=== PATIENT | female | born 1945 | race Caucasian/White ===

== ENCOUNTER → 2020-01-22 07:24 | Outpatient (CLI) | payer MEDICARE, OTHER, SELFPAY ==
[2020-01-22 08:52] LABS: Blood Urea Nitrogen 20 mg/dL (7-17); Calcium 9.2 mg/dL (8.4-10.2); Carbon Dioxide 30 mmol/L (22-32); Chloride 104 mmol/L (98-107); Cholesterol 225 mg/dL (140-199); Estimated Glomerular Filt Rate > 60.0 mL/min (>60); Glucose 94 mg/dL (80-110); HDL Cholesterol 41 mg/dL (40-60); HEMOLYSIS < 15 (0-50); LDL Cholesterol Calculated 158 mg/dL (<100); Potassium 4.3 mmol/L (3.4-5.1); Sodium 138 mmol/L (137-145); Triglycerides 129 mg/dL (35-150)
[2020-01-22 09:24] LABS: TSH w/ Reflex to FT4 1.51 uIU/mL (0.47-4.68)
== END ==
PROVIDERS: PCP Internal Medicine; Referring Provider Internal Medicine; Visit Provider Internal Medicine
DX: Z13.1 Encounter for screening for diabetes mellitus (principal); E78.5 Hyperlipidemia, unspecified; E03.9 Hypothyroidism, unspecified
CPT/HCPCS: 36415; 80048; 80061; 84443

== ENCOUNTER → 2020-07-16 08:03 | Outpatient (CLI) | payer MEDICARE, OTHER, SELFPAY ==
[2020-07-16 08:43] LABS: Cholesterol 249 mg/dL (140-199); HDL Cholesterol 60 mg/dL (40-60); LDL Cholesterol Calculated 163 mg/dL (<100); Triglycerides 130 mg/dL (35-150)
== END ==
PROVIDERS: PCP Internal Medicine; Referring Provider Internal Medicine; Visit Provider Internal Medicine
DX: E78.5 Hyperlipidemia, unspecified (principal)
CPT/HCPCS: 36415; 80061

== ENCOUNTER → 2020-12-03 09:38 | Outpatient (CLI) | payer MEDICARE, OTHER, SELFPAY ==
[2020-12-03 10:42] LABS: Alanine Aminotransferase 19 IU/L (<35); Albumin 3.8 g/dL (3.5-5.0); Albumin Globulin Ratio 1.4 (1.0-2.8); Alkaline Phosphatase 65 U/L (38-126); Aspartate Aminotransferase 29 IU/L (14-36); Bilirubin Total 0.4 mg/dL (0.2-1.3); Blood Urea Nitrogen 19 mg/dL (7-17); Calcium 9.4 mg/dL (8.4-10.2); Carbon Dioxide 31 mmol/L (22-32); Chloride 105 mmol/L (98-107); Cholesterol 249 mg/dL (140-199); Estimated Glomerular Filt Rate > 60.0 mL/min (>60); Globulin 2.8 g/dL (1.7-4.1); Glucose 91 mg/dL (80-110); HDL Cholesterol 49 mg/dL (40-60); HEMOLYSIS < 15 (0-50); LDL Cholesterol Calculated 170 mg/dL (<100); Potassium 4.4 mmol/L (3.4-5.1); Sodium 139 mmol/L (137-145); Total Protein 6.6 g/dL (6.3-8.2); Triglycerides 151 mg/dL (35-150)
[2020-12-03 11:16] LABS: Vitamin D 25 Hydroxy (D3) 70.2 ng/mL (30.0-100.0)
[2020-12-03 11:30] LABS: TSH w/ Reflex to FT4 1.22 uIU/mL (0.47-4.68)
== END ==
PROVIDERS: Family Provider Internal Medicine; PCP Internal Medicine; Referring Provider Internal Medicine; Visit Provider Internal Medicine
DX: E03.9 Hypothyroidism, unspecified (principal); E55.9 Vitamin D deficiency, unspecified; E78.5 Hyperlipidemia, unspecified
CPT/HCPCS: 36415; 80053; 80061; 82306; 84443

== ENCOUNTER 2020-12-26 13:00 | Outpatient (RCR) | payer MEDICARE, OTHER, SELFPAY ==
--- NOTE | 2020-12-08 14:17 | PT.OPPOC ---
Physical, Occupational & Speech Therapy At [facility] Current Diagnoses Pain in right knee (12/08/20) Visit Care Team Role Provider Type Dennise Moyer MD Attending Provider Physician Family Provider Primary Care Provider Referring Provider Specialty: Internal Medicine Address: [address] [place] [address], [id number] Email: [email or web address] Plan Of Care PT-OP-T Assessment and Plan Start: 12/09/20 13:54 Freq: Status: Active Protocol: Document 12/08/20 13:54 (Rec: 12/09/20 14:16 [email or web address]) Physical Therapy Assessment Rehab Potential Rehabilitation Potential Excellent Evaluation Complexity Number of Personal Factors/Comorbidities 0 Number of Body Systems Impaired 1-2 Clinical Presentation at Evaluation Stable Impairments Impairments Activity Tolerance,Balance, Functional Activities, Functional Mobility,Gait,Pain, Posture,ROM,Soft Tissue Mobility,Strength Goals return to hobby Impairment unable to participate her workout class Senior Living Goal (LTG) pt will be able to fully return to her online workout class >3 times /week which includes squat jumps and jumping jacks. LTG Duration 8 weeks pain Impairment pt has pain 4/10 after 3 mile walk Short Term Goal (STG) pt will be able to complete 3 mile walk daily with pain no more than 2/10 STG Duration 4 weeks Company Marker Goal (LTG) pt will be able to complete 3 mile walk daily without any pain LTG Duration 8 weeks LEFS Impairment pt scores 64/80 on LEFS Company Marker Goal (LTG) pt will scores >70 on LEFS to improve her overall quality of life LTG Duration 8 weeks Assessment Summary Assessment Hermelinda is a healthy and active 75yo female here for her R medial knee pain since 2.5 months ago after she did some squat jumps from a workout class. Upon assessment, pt presents a possible grade I MCL strain whose pain/ discomfort was only reproduced through palpation at medial knee joint line. Her pain was also relieved after manual therapy . She does not show impaired balance, strength nor ROM. However, she does has significant tightness at bilateral quads. Pt will benefit from skilled therapy to improve her pain sensivity and use graded exposure to assist patient back to her workout routine safely and without discomfort. Physical Therapy Plan Frequency and Duration Frequency of Treatment 1x/Week Duration of Treatment 8 weeks Plan of Care Start Date 12/08/20 Plan of Care End Date 02/07/21 Therapeutic Interventions Therapeutic Interventions Balance Training,Gait Training ,Home Exercise Program,Joint Mobilizations,Manual Therapy, Neuromuscular Re-education, Orthotic/Prosthetic Management ,Self-Care/Home Management, Soft Tissue Mobilization, Therapeutic Activities, Therapeutic Exercises Next Visit Focus/Plan Next Note Type Treatment Note Next Visit Plan STM on MCL start with biking LAQ, HS curl leg press squat Plan of Care Dates Plan of Care Start Date 12/08/20 Plan of Care End Date 02/07/21 Electronically Signed by: Suman Kern PT 12/09/20 0054 Please Sign and Return: I have reviewed this Plan of Care and certify that the skilled therapy services above are required to meet the patient?s needs. Physician Signature Date Printed Name and Credentials Clinical Instructor Signature Printed Name and Credentials
--- NOTE | 2020-12-08 14:18 | PT.OTN ---
Current Diagnoses Pain in right knee (12/08/20) Physical Therapy Treatment Note PT-OP-A Visit Information Start: 12/09/20 13:54 Freq: Status: Active Protocol: Document 12/08/20 13:54 (Rec: 12/09/20 14:16 [email or web address]) Out-Patient Physical Therapy Visit Information Visit Information Visit Type Initial Evaluation Visit Start Time 13:00 Visit Stop Time 13:45 Total Visit Minutes 45 Visit Number 08/26 Number of RN IMAGING Visits 0 Evaluation Information Evaluation Date 12/09/20 PT-OP-B Current Condition Start: 12/09/20 13:54 Freq: Status: Active Protocol: Document 12/08/20 13:54 HH (Rec: 12/09/20 14:16 [email or web address]) Current Condition History of Current Condition Onset Date 2.5 months ago Current Complaints R medial knee pain, difficult to exercise History of Current Condition Hermelinda is a 75yo healthy and active female here for her R medial knee pain started 2.5 months ago. She believes that she injured her R knee after doing squat jump from an online exercise class. Her pain locates at medial side and she then took 3 weeks off from exercises and it did improve slightly. She noticed she has some achy pain when she turns quickly and after she finishes her daily 3 mile walk. pt denies discomfort with stair climbing but slightly with going downhill. Pt normally would like to walk 3 mile a day and participate online workout class with her which has some jumping jacks and squat jumps. Treatment Goals Patient/Caregiver Goals 1. to be able to walk without discomfort 2. to re-participate her online workout class PT-OP-C Subjective Start: 12/09/20 13:54 Freq: Status: Active Protocol: Document 12/08/20 13:54 HH (Rec: 12/09/20 14:16 [email or web address]) Patient Questionnaires Lower Extremity Functional Scale LEFS Score 64 LEFS Impairment 1 to 19% Impaired (Score 63-79 ) OP-PT Pain Assessment Location R medial knee pain Pain Location Details MCL Intensity 4 Scale Used Numeric (0 - 10) Description Aching Frequency Frequent Pain Aggravating Factors Activity,Exercise,Walking Pain Alleviating Factors Inactivity,Lying Supine PT-OP-D Balance Start: 12/09/20 13:54 Freq: Status: Active Protocol: Document 12/08/20 13:54 (Rec: 12/09/20 14:16 [email or web address]) Balance Tests Single Limb Standing Single Limb- Right >30 Single Limb- Left >30 PT-OP-F Manual Assessment Start: 12/09/20 13:54 Freq: Status: Active Protocol: Document 12/08/20 13:54 HH (Rec: 12/09/20 14:16 [email or web address]) Manual Assessments Soft Tissue Assessment Soft Tissue Mobility Assessment pain to pressure at R MCL region significant hypertonicity noted on B quads PT-OP-K Range of Motion Start: 12/09/20 13:54 Freq: Status: Active Protocol: Document 12/08/20 13:54 HH (Rec: 12/09/20 14:16 [email or web address]) Knee Goniometric Range of Motion Knee Right Knee ROM WFL Yes Flexion Active (degrees) 120 Extension Active (degrees) 0 Left Knee ROM WFL Yes Flexion Active (degrees) 120 Extension Active (degrees) 0 PT-OP-L Special Tests Start: 12/09/20 13:54 Freq: Status: Active Protocol: Document 12/08/20 13:54 HH (Rec: 12/09/20 14:16 [email or web address]) Special Tests Knee Special Tests Varus- 25 Degrees Test Results -ve B Varus- 0 Degrees Test Results -ve B Valgus- 25 Degrees Test Results -ve B Valgus- 0 Degrees Test Results -ve B Thessaly Test 5 Degrees Test Results -ve B Luke Test Results +Ve B Comments signifciant tightness at rectus femoris, 20 degrees off table Thessaly Test 20 Degrees Test Results -ve B PT-OP-M Strength Start: 12/09/20 13:54 Freq: Status: Active Protocol: Document 12/08/20 13:54 (Rec: 12/09/20 14:16 [email or web address]) Hip Strength Hip Manual Muscle Testing Right Flexion (L2) 4 Good Extension (S1) 4 Good Abduction 4 Good Adduction 4 Good Left Flexion (L2) 4 Good Extension (S1) 4 Good Abduction 4 Good Adduction 4 Good Comments cramp during hip flexion hold Knee Strength Knee Manual Muscle Testing Right Flexion (S2) 4+ Good+ Extension (L3) 4+ Good+ Left Flexion (S2) 4+ Good+ Extension (L3) 4+ Good+ PT-OP-Q Treatments Start: 05/04/21 13:54 Freq: Status: Active Protocol: Document 12/08/20 13:54 HH (Rec: 12/09/20 14:16 [email or web address]) Therapeutic Exercises Supine Exercises luke test stretch Equipment Used with bath towel to assist Reps/Minutes 10 sec hold x 5 Comments for hEP Manual Therapy Treatment Soft Tissue Mobilization R knee Body Location at MCL Mobilization Type Sustained Pressure,Trigger Point Release Intensity/Depth Moderate Body Position Supine Comments pt reports feeling good with good relief. PT-OP-T Assessment and Plan Start: 12/09/20 13:54 Freq: Status: Active Protocol: Document 12/08/20 13:54 HH (Rec: 12/09/20 14:16 [email or web address]) Physical Therapy Assessment Rehab Potential Rehabilitation Potential Excellent Evaluation Complexity Number of Personal Factors/Comorbidities 0 Number of Body Systems Impaired 1-2 Clinical Presentation at Evaluation Stable Impairments Impairments Activity Tolerance,Balance, Functional Activities, Functional Mobility,Gait,Pain, Posture,ROM,Soft Tissue Mobility,Strength Goals return to hobby Impairment unable to participate her workout class Group Home Goal (LTG) pt will be able to fully return to her online workout class >3 times /week which includes squat jumps and jumping jacks. LTG Duration 8 weeks pain Impairment pt has pain 4/10 after 3 mile walk Short Term Goal (STG) pt will be able to complete 3 mile walk daily with pain no more than 2/10 STG Duration 4 weeks Group Home Goal (LTG) pt will be able to complete 3 mile walk daily without any pain LTG Duration 8 weeks LEFS Impairment pt scores 64/80 on LEFS Group Home Goal (LTG) pt will scores >70 on LEFS to improve her overall quality of life LTG Duration 8 weeks Assessment Summary Assessment Hermelinda is a healthy and active 75yo female here for her R medial knee pain since 2.5 months ago after she did some squat jumps from a workout class. Upon assessment, pt presents a possible grade I MCL strain whose pain/ discomfort was only reproduced through palpation at medial knee joint line. Her pain was also relieved after manual therapy . She does not show impaired balance, strength nor ROM. However, she does has significant tightness at bilateral quads. Pt will benefit from skilled therapy to improve her pain sensivity and use graded exposure to assist patient back to her workout routine safely and without discomfort. Physical Therapy Plan Frequency and Duration Frequency of Treatment 1x/Week Duration of Treatment 8 weeks Plan of Care Start Date 12/08/20 Plan of Care End Date 02/07/21 Therapeutic Interventions Therapeutic Interventions Balance Training,Gait Training ,Home Exercise Program,Joint Mobilizations,Manual Therapy, Neuromuscular Re-education, Orthotic/Prosthetic Management ,Self-Care/Home Management, Soft Tissue Mobilization, Therapeutic Activities, Therapeutic Exercises Next Visit Focus/Plan Next Note Type Treatment Note Next Visit Plan STM on MCL start with biking LAQ, HS curl leg press squat
--- NOTE | 2020-12-08 17:00 | PT.OIE ---
Current Diagnoses Pain in right knee (12/08/20) Visit Care Team Role Provider Type Dennise Moyer MD Attending Provider Physician Family Provider Primary Care Provider Referring Provider Specialty: Internal Medicine Address: [address] [place] [address], [id number] Email: [email or web address] Physical Therapy Initial Evaluation PT-OP-A Visit Information Start: 12/09/20 13:54 Freq: Status: Active Protocol: Document 12/08/20 13:54 HH (Rec: 12/09/20 14:16 [email or web address]) Out-Patient Physical Therapy Visit Information Visit Information Visit Type Initial Evaluation Visit Start Time 13:00 Visit Stop Time 13:45 Total Visit Minutes 45 Visit Number 08/26 Number of CERTIFIED SURGICAL TECHNICIAN Visits 0 Evaluation Information Evaluation Date 12/09/20 PT-OP-B Current Condition Start: 12/09/20 13:54 Freq: Status: Active Protocol: Document 12/08/20 13:54 HH (Rec: 12/09/20 14:16 HH [email or web address]) Current Condition History of Current Condition Onset Date 2.5 months ago Current Complaints R medial knee pain, difficult to exercise History of Current Condition Hermelinda is a 75yo healthy and active female here for her R medial knee pain started 2.5 months ago. She believes that she injured her R knee after doing squat jump from an online exercise class. Her pain locates at medial side and she then took 3 weeks off from exercises and it did improve slightly. She noticed she has some achy pain when she turns quickly and after she finishes her daily 3 mile walk. pt denies discomfort with stair climbing but slightly with going downhill. Pt normally would like to walk 3 mile a day and participate online workout class with her which has some jumping jacks and squat jumps. Treatment Goals Patient/Caregiver Goals 1. to be able to walk without discomfort 2. to re-participate her online workout class PT-OP-C Subjective Start: 12/09/20 13:54 Freq: Status: Active Protocol: Document 12/08/20 13:54 HH (Rec: 12/09/20 14:16 HH [email or web address]) Patient Questionnaires Lower Extremity Functional Scale LEFS Score 64 LEFS Impairment 1 to 19% Impaired (Score 63-79 ) OP-PT Pain Assessment Location R medial knee pain Pain Location Details MCL Intensity 4 Scale Used Numeric (0 - 10) Description Aching Frequency Frequent Pain Aggravating Factors Activity,Exercise,Walking Pain Alleviating Factors Inactivity,Lying Supine PT-OP-D Balance Start: 12/09/20 13:54 Freq: Status: Active Protocol: Document 12/08/20 13:54 HH (Rec: 12/09/20 14:16 [email or web address]) Balance Tests Single Limb Standing Single Limb- Right >30 Single Limb- Left >30 PT-OP-F Manual Assessment Start: 12/09/20 13:54 Freq: Status: Active Protocol: Document 12/08/20 13:54 HH (Rec: 12/09/20 14:16 [email or web address]) Manual Assessments Soft Tissue Assessment Soft Tissue Mobility Assessment pain to pressure at R MCL region significant hypertonicity noted on B quads PT-OP-K Range of Motion Start: 12/09/20 13:54 Freq: Status: Active Protocol: Document 12/08/20 13:54 HH (Rec: 12/09/20 14:16 [email or web address]) Knee Goniometric Range of Motion Knee Right Knee ROM WFL Yes Flexion Active (degrees) 120 Extension Active (degrees) 0 Left Knee ROM WFL Yes Flexion Active (degrees) 120 Extension Active (degrees) 0 PT-OP-L Special Tests Start: 12/09/20 13:54 Freq: Status: Active Protocol: Document 12/08/20 13:54 HH (Rec: 12/09/20 14:16 [email or web address]) Special Tests Knee Special Tests Varus- 25 Degrees Test Results -ve B Varus- 0 Degrees Test Results -ve B Valgus- 25 Degrees Test Results -ve B Valgus- 0 Degrees Test Results -ve B Thessaly Test 5 Degrees Test Results -ve B Luke Test Results +Ve B Comments signifciant tightness at rectus femoris, 20 degrees off table Thessaly Test 20 Degrees Test Results -ve B PT-OP-M Strength Start: 12/09/20 13:54 Freq: Status: Active Protocol: Document 12/08/20 13:54 HH (Rec: 12/09/20 14:16 [email or web address]) Hip Strength Hip Manual Muscle Testing Right Flexion (L2) 4 Good Extension (S1) 4 Good Abduction 4 Good Adduction 4 Good Left Flexion (L2) 4 Good Extension (S1) 4 Good Abduction 4 Good Adduction 4 Good Comments cramp during hip flexion hold Knee Strength Knee Manual Muscle Testing Right Flexion (S2) 4+ Good+ Extension (L3) 4+ Good+ Left Flexion (S2) 4+ Good+ Extension (L3) 4+ Good+ PT-OP-Q Treatments Start: 12/09/20 13:54 Freq: Status: Active Protocol: Document 12/08/20 13:54 (Rec: 12/09/20 14:16 [email or web address]) Therapeutic Exercises Supine Exercises luke test stretch Equipment Used with bath towel to assist Reps/Minutes 10 sec hold x 5 Comments for hEP Manual Therapy Treatment Soft Tissue Mobilization R knee Body Location at MCL Mobilization Type Sustained Pressure,Trigger Point Release Intensity/Depth Moderate Body Position Supine Comments pt reports feeling good with good relief. PT-OP-T Assessment and Plan Start: 12/09/20 13:54 Freq: Status: Active Protocol: Document 12/08/20 13:54 (Rec: 12/09/20 14:16 [email or web address]) Physical Therapy Assessment Rehab Potential Rehabilitation Potential Excellent Evaluation Complexity Number of Personal Factors/Comorbidities 0 Number of Body Systems Impaired 1-2 Clinical Presentation at Evaluation Stable Impairments Impairments Activity Tolerance,Balance, Functional Activities, Functional Mobility,Gait,Pain, Posture,ROM,Soft Tissue Mobility,Strength Goals return to hobby Impairment unable to participate her workout class Skilled Nursing Goal (LTG) pt will be able to fully return to her online workout class >3 times /week which includes squat jumps and jumping jacks. LTG Duration 8 weeks pain Impairment pt has pain 4/10 after 3 mile walk Short Term Goal (STG) pt will be able to complete 3 mile walk daily with pain no more than 2/10 STG Duration 4 weeks Skilled Nursing Goal (LTG) pt will be able to complete 3 mile walk daily without any pain LTG Duration 8 weeks LEFS Impairment pt scores 64/80 on LEFS Skilled Nursing Goal (LTG) pt will scores >70 on LEFS to improve her overall quality of life LTG Duration 8 weeks Assessment Summary Assessment Hermelinda is a healthy and active 75yo female here for her R medial knee pain since 2.5 months ago after she did some squat jumps from a workout class. Upon assessment, pt presents a possible grade I MCL strain whose pain/ discomfort was only reproduced through palpation at medial knee joint line. Her pain was also relieved after manual therapy . She does not show impaired balance, strength nor ROM. However, she does has significant tightness at bilateral quads. Pt will benefit from skilled therapy to improve her pain sensivity and use graded exposure to assist patient back to her workout routine safely and without discomfort. Physical Therapy Plan Frequency and Duration Frequency of Treatment 1x/Week Duration of Treatment 8 weeks Plan of Care Start Date 12/08/20 Plan of Care End Date 02/07/21 Therapeutic Interventions Therapeutic Interventions Balance Training,Gait Training ,Home Exercise Program,Joint Mobilizations,Manual Therapy, Neuromuscular Re-education, Orthotic/Prosthetic Management ,Self-Care/Home Management, Soft Tissue Mobilization, Therapeutic Activities, Therapeutic Exercises Next Visit Focus/Plan Next Note Type Treatment Note Next Visit Plan STM on MCL start with biking LAQ, HS curl leg press squat
--- NOTE | 2020-12-12 13:40 | PT.OTN ---
Current Diagnoses Pain in right knee (12/12/20) Physical Therapy Treatment Note PT-OP-A Visit Information Start: 12/09/20 13:54 Freq: Status: Active Protocol: Document 12/12/20 13:02 (Rec: 12/12/20 13:40 [id number]) Out-Patient Physical Therapy Visit Information Visit Information Visit Type Treatment Note Visit Start Time 13:05 Visit Stop Time 13:45 Total Visit Minutes 40 Visit Number 09/26 Number of RECREATION DIRECTOR Visits 0 PT-OP-B Current Condition Start: 12/09/20 13:54 Freq: Status: Active Protocol: Document 12/08/20 13:54 (Rec: 12/09/20 14:16 [email or web address]) Current Condition History of Current Condition Onset Date 2.5 months ago Current Complaints R medial knee pain, difficult to exercise History of Current Condition Hermelinda is a 75yo healthy and active female here for her R medial knee pain started 2.5 months ago. She believes that she injured her R knee after doing squat jump from an online exercise class. Her pain locates at medial side and she then took 3 weeks off from exercises and it did improve slightly. She noticed she has some achy pain when she turns quickly and after she finishes her daily 3 mile walk. pt denies discomfort with stair climbing but slightly with going downhill. Pt normally would like to walk 3 mile a day and participate online workout class with her which has some jumping jacks and squat jumps. Treatment Goals Patient/Caregiver Goals 1. to be able to walk without discomfort 2. to re-participate her online workout class PT-OP-C Subjective Start: 12/09/20 13:54 Freq: Status: Active Protocol: Document 12/12/20 13:02 (Rec: 12/12/20 13:40 [id number]) OP-PT Subjective Patient Comments Patient Comments My knee feels good so far and i also did a class this week and i had no problem. Patient Reported Progress Improving PT-OP-D Balance Start: 12/09/20 13:54 Freq: Status: Active Protocol: Document 12/08/20 13:54 (Rec: 12/09/20 14:16 [email or web address]) Balance Tests Single Limb Standing Single Limb- Right >30 Single Limb- Left >30 PT-OP-F Manual Assessment Start: 12/09/20 13:54 Freq: Status: Active Protocol: Document 12/08/20 13:54 (Rec: 12/09/20 14:16 [email or web address]) Manual Assessments Soft Tissue Assessment Soft Tissue Mobility Assessment pain to pressure at R MCL region significant hypertonicity noted on B quads PT-OP-K Range of Motion Start: 12/09/20 13:54 Freq: Status: Active Protocol: Document 12/08/20 13:54 HH (Rec: 12/09/20 14:16 [email or web address]) Knee Goniometric Range of Motion Knee Right Knee ROM WFL Yes Flexion Active (degrees) 120 Extension Active (degrees) 0 Left Knee ROM WFL Yes Flexion Active (degrees) 120 Extension Active (degrees) 0 PT-OP-L Special Tests Start: 12/09/20 13:54 Freq: Status: Active Protocol: Document 12/08/20 13:54 HH (Rec: 12/09/20 14:16 [email or web address]) Special Tests Knee Special Tests Varus- 25 Degrees Test Results -ve B Varus- 0 Degrees Test Results -ve B Valgus- 25 Degrees Test Results -ve B Valgus- 0 Degrees Test Results -ve B Thessaly Test 5 Degrees Test Results -ve B Luke Test Results +Ve B Comments signifciant tightness at rectus femoris, 20 degrees off table Thessaly Test 20 Degrees Test Results -ve B PT-OP-M Strength Start: 12/09/20 13:54 Freq: Status: Active Protocol: Document 12/08/20 13:54 (Rec: 12/09/20 14:16 [email or web address]) Hip Strength Hip Manual Muscle Testing Right Flexion (L2) 4 Good Extension (S1) 4 Good Abduction 4 Good Adduction 4 Good Left Flexion (L2) 4 Good Extension (S1) 4 Good Abduction 4 Good Adduction 4 Good Comments cramp during hip flexion hold Knee Strength Knee Manual Muscle Testing Right Flexion (S2) 4+ Good+ Extension (L3) 4+ Good+ Left Flexion (S2) 4+ Good+ Extension (L3) 4+ Good+ PT-OP-Q Treatments Start: 12/09/20 13:54 Freq: Status: Active Protocol: Document 12/12/20 13:02 (Rec: 12/12/20 13:40 [email or web address]) Therapeutic Exercises Supine Exercises luke test stretch Equipment Used with bath towel to assist Reps/Minutes 10 sec hold x 5 Comments for hEP Prone Exercises HS curl Reps/Minutes 10x2 Comments for HEP Sitting Exercises LAQ Reps/Minutes 3 sec hold x10 x 2 Comments for HEP Standing Exercises wall squat Standing Exercise Name wall squat hold Reps/Minutes 8SEC HOLD x 5 Comments cues on WB through heels Manual Therapy Treatment Soft Tissue Mobilization R knee Body Location at MCL Mobilization Type Sustained Pressure,Trigger Point Release Intensity/Depth Moderate Body Position Supine Comments pt reports feeling good with good relief. PT-OP-T Assessment and Plan Start: 12/09/20 13:54 Freq: Status: Active Protocol: Document 12/12/20 13:02 (Rec: 12/12/20 13:40 [id number]) Physical Therapy Assessment Goals return to hobby Impairment unable to participate her workout class Assistant Golf Course Superintendent Goal (LTG) pt will be able to fully return to her online workout class >3 times /week which includes squat jumps and jumping jacks. LTG Duration 8 weeks pain Impairment pt has pain 4/10 after 3 mile walk Short Term Goal (STG) pt will be able to complete 3 mile walk daily with pain no more than 2/10 STG Duration 4 weeks Long-Term Goal (LTG) pt will be able to complete 3 mile walk daily without any pain LTG Duration 8 weeks LEFS Impairment pt scores 64/80 on LEFS Assistant Golf Course Superintendent Goal (LTG) pt will scores >70 on LEFS to improve her overall quality of life LTG Duration 8 weeks Assessment Summary Assessment Pt reports her R knee feels good and no pain since last visit. She was able to participate 1 workout class and no pain as well. Gave her HEP with quad and HS strnegthening HEP. Will f/u in 2 weeks and possible DC Physical Therapy Plan Frequency and Duration Frequency of Treatment 1x/Week Duration of Treatment 8 weeks Plan of Care Start Date 12/08/20 Plan of Care End Date 02/07/21 Therapeutic Interventions Therapeutic Interventions Balance Training,Gait Training ,Home Exercise Program,Joint Mobilizations,Manual Therapy, Neuromuscular Re-education, Orthotic/Prosthetic Management ,Self-Care/Home Management, Soft Tissue Mobilization, Therapeutic Activities, Therapeutic Exercises Next Visit Focus/Plan Next Note Type Treatment Note Next Visit Plan STM on MCL start with biking LAQ, HS curl leg press squat
--- NOTE | 2020-12-26 13:36 | PT.OTN ---
Current Diagnoses Pain in right knee (12/26/20) Physical Therapy Treatment Note PT-OP-A Visit Information Start: 12/09/20 13:54 Freq: Status: Active Protocol: Document 12/26/20 13:02 (Rec: 12/26/20 13:35 [id number]) Out-Patient Physical Therapy Visit Information Visit Information Visit Type Discharge Summary Visit Start Time 13:03 Visit Stop Time 13:41 Total Visit Minutes 38 Visit Number 10/24 Number of UNSTACKER Visits 0 PT-OP-B Current Condition Start: 12/09/20 13:54 Freq: Status: Active Protocol: Document 12/08/20 13:54 HH (Rec: 12/09/20 14:16 [email or web address]) Current Condition History of Current Condition Onset Date 2.5 months ago Current Complaints R medial knee pain, difficult to exercise History of Current Condition Hermelinda is a 75yo healthy and active female here for her R medial knee pain started 2.5 months ago. She believes that she injured her R knee after doing squat jump from an online exercise class. Her pain locates at medial side and she then took 3 weeks off from exercises and it did improve slightly. She noticed she has some achy pain when she turns quickly and after she finishes her daily 3 mile walk. pt denies discomfort with stair climbing but slightly with going downhill. Pt normally would like to walk 3 mile a day and participate online workout class with her which has some jumping jacks and squat jumps. Treatment Goals Patient/Caregiver Goals 1. to be able to walk without discomfort 2. to re-participate her online workout class PT-OP-C Subjective Start: 12/09/20 13:54 Freq: Status: Active Protocol: Document 12/26/20 13:02 (Rec: 12/26/20 13:35 [id number]) OP-PT Subjective Patient Comments Patient Comments Monserrat been walking 2-3 miles a day and no problem. Same with going up and down stairs. Patient Reported Progress Improving PT-OP-D Balance Start: 12/09/20 13:54 Freq: Status: Active Protocol: Document 12/08/20 13:54 HH (Rec: 12/09/20 14:16 [email or web address]) Balance Tests Single Limb Standing Single Limb- Right >30 Single Limb- Left >30 PT-OP-F Manual Assessment Start: 12/09/20 13:54 Freq: Status: Active Protocol: Document 12/08/20 13:54 (Rec: 12/09/20 14:16 [email or web address]) Manual Assessments Soft Tissue Assessment Soft Tissue Mobility Assessment pain to pressure at R MCL region significant hypertonicity noted on B quads PT-OP-K Range of Motion Start: 12/09/20 13:54 Freq: Status: Active Protocol: Document 12/08/20 13:54 HH (Rec: 12/09/20 14:16 [email or web address]) Knee Goniometric Range of Motion Knee Right Knee ROM WFL Yes Flexion Active (degrees) 120 Extension Active (degrees) 0 Left Knee ROM WFL Yes Flexion Active (degrees) 120 Extension Active (degrees) 0 PT-OP-L Special Tests Start: 12/09/20 13:54 Freq: Status: Active Protocol: Document 12/08/20 13:54 HH (Rec: 12/09/20 14:16 [email or web address]) Special Tests Knee Special Tests Varus- 25 Degrees Test Results -ve B Varus- 0 Degrees Test Results -ve B Valgus- 25 Degrees Test Results -ve B Valgus- 0 Degrees Test Results -ve B Thessaly Test 5 Degrees Test Results -ve B Luke Test Results +Ve B Comments signifciant tightness at rectus femoris, 20 degrees off table Thessaly Test 20 Degrees Test Results -ve B PT-OP-M Strength Start: 12/09/20 13:54 Freq: Status: Active Protocol: Document 12/08/20 13:54 (Rec: 12/09/20 14:16 [email or web address]) Hip Strength Hip Manual Muscle Testing Right Flexion (L2) 4 Good Extension (S1) 4 Good Abduction 4 Good Adduction 4 Good Left Flexion (L2) 4 Good Extension (S1) 4 Good Abduction 4 Good Adduction 4 Good Comments cramp during hip flexion hold Knee Strength Knee Manual Muscle Testing Right Flexion (S2) 4+ Good+ Extension (L3) 4+ Good+ Left Flexion (S2) 4+ Good+ Extension (L3) 4+ Good+ PT-OP-Q Treatments Start: 12/09/20 13:54 Freq: Status: Active Protocol: Document 12/26/20 13:02 (Rec: 12/26/20 13:35 [id number]) Cardio Equipment Bicycle (Upright) Duration (Minutes) 6 Resistance 8 Therapeutic Exercises Standing Exercises step down Standing Exercise Name 1UE support on rail Equipment Used 4 inch step Comments for HEP step up Equipment Used 6inch step Comments for HEP monster walk Equipment Used yellow band at knees Comments for HEP PT-OP-T Assessment and Plan Start: 12/09/20 13:54 Freq: Status: Active Protocol: Document 12/26/20 13:02 (Rec: 12/26/20 13:35 [id number]) Physical Therapy Assessment Goals return to hobby Impairment unable to participate her workout class [employer] Goal (LTG) 12/26 goal met pt is able to fully return to her online workout class >3 times /week which includes squat jumps and jumping jacks. LTG Duration 8 weeks pain Impairment pt has pain 4/10 after 3 mile walk Short Term Goal (STG) pt will be able to complete 3 mile walk daily with pain no more than 2/10 STG Duration 4 weeks Senior Living Goal (LTG) 12/26 goal met pt is able to complete 3 mile walk daily without any pain LTG Duration 8 weeks LEFS Impairment pt scores 64/80 on LEFS [employer] Goal (LTG) pt will scores >70 on LEFS to improve her overall quality of life LTG Duration 8 weeks Progress Towards Goals Progress Towards Goals Goals Met Assessment Summary Assessment Pt stated she has no discomfort and fully returned to her walking rountine. She is pleased with the result and agreed to be DC from PT. Provided knee and hip strengthening HEP for maintainence Physical Therapy Plan Frequency and Duration Frequency of Treatment 1x/Week Duration of Treatment 8 weeks Plan of Care Start Date 12/08/20 Plan of Care End Date 02/07/21 Therapeutic Interventions Therapeutic Interventions Balance Training,Gait Training ,Home Exercise Program,Joint Mobilizations,Manual Therapy, Neuromuscular Re-education, Orthotic/Prosthetic Management ,Self-Care/Home Management, Soft Tissue Mobilization, Therapeutic Activities, Therapeutic Exercises Next Visit Focus/Plan Next Note Type Treatment Note Next Visit Plan STM on MCL start with biking LAQ, HS curl leg press squat
== END 2020-12-26 14:10 | disposition home or self-care (01) ==
LOC: PHYS 13:00
PROVIDERS: Family Provider Internal Medicine; PCP Internal Medicine; Referring Provider Internal Medicine; Visit Provider Internal Medicine
DX: M25.561 Pain in right knee (principal)
CPT/HCPCS: 97110; 97140; 97161

== ENCOUNTER → 2022-01-25 14:05 | Outpatient (CLI) | payer MEDICARE, OTHER, SELFPAY | PROVIDERS: Family Provider Internal Medicine; PCP Internal Medicine; Referring Provider Student in an Organized Health Care Education/Training Program; Visit Provider Student in an Organized Health Care Education/Training Program | DX: Z13.820 Encounter for screening for osteoporosis (principal); E21.3 Hyperparathyroidism, unspecified; M81.0 Age-related osteoporosis without current pathological fracture; Z78.0 Asymptomatic menopausal state | CPT/HCPCS: 77080 ==

== ENCOUNTER → 2022-03-05 11:23 | Outpatient (CLI) | payer MEDICARE, OTHER, SELFPAY ==
[2022-03-05 13:13] LABS: COVID19 -Nasal RAPID Negative (Negative)
== END ==
PROVIDERS: Family Provider Internal Medicine; PCP Student in an Organized Health Care Education/Training Program; Visit Provider Surgery
DX: Z20.822 Contact with and (suspected) exposure to COVID-19 (principal); Z01.812 Encounter for preprocedural laboratory examination
CPT/HCPCS: 87635; C9803

== ENCOUNTER 2022-03-08 11:54 | Day surgery (SDC) | payer MEDICARE, OTHER, SELFPAY ==
[2022-03-08] MEDS: SODIUM CHLORIDE 0.9% 1,000 ML 84 ML IV (12:46)
--- NOTE | 2022-03-08 13:52 | P.HP_ITS ---
History of Present Illness History of Present Illness Date Patient Seen: 03/08/22 Time Patient Seen: 13:52 Chief complaint: [facility] [place] Narrative: Family history of colon cancer in her mom. Patient History Medical History Hyperlipidemia Osteopenia Family & Social History Social History: household members spouse Tobacco & Substance use: Smoking Status Never smoker alcohol intake current alcohol intake frequency a few times a month Substance Use Type does not use Meds Home Medications and Allergies Home Medications Medication Instructions Recorded Confirmed Type alendronate 70 mg tablet 70 mg PO WEEKLY 03/08/22 03/08/22 History atorvastatin 20 mg tablet 20 mg PO BEDTIME 03/08/22 03/08/22 History levothyroxine 88 mcg tablet 88 mcg PO DAILY 03/08/22 03/08/22 History Allergies Allergy/AdvReac Type Severity Reaction Status Date / Time Penicillins Allergy Mild Hives Verified 03/08/22 12:43 Sulfa (Sulfonamide Allergy Mild Hives Verified 03/08/22 12:43 Antibiotics) Review of Systems Review of Systems ROS: Yes All systems reviewed with the patient and are negative except as otherwise documented Exam Const General: cooperative HENMT Head: normal to inspection Eyes General: appearance normal, both eyes and all related structures Neck Neck: normal visual inspection Chest Chest: normal inspection of the chest Resp Effort & Inspection: normal respiratory effort Cardio Rate: regular rate GI Inspection: normal to inspection Skin General: no rashes or lesions noted Neuro General: patient alert and patient awake Extrem General: normal to inspection and no pedal edema Psych Appearance: grossly normal Assessment & Plan Assessment & Plan narrative: 76-year-old female with a family history of colon cancer in her. Colonoscopy is pursued today. Time Spent With Patient Critical Care time: I spent a total of [] minutes of critical care time on this patient's care today; this time is exclusive of procedural time.
--- NOTE | 2022-03-08 13:53 | PM.PREOP ---
Pre-operative Note COVID-19 COVID-19 status: Negative Result date/Date tested (Pos, Neg/Pending): 03/05/22 Criteria for continued procedure: Possibility delay results in more complex future surgery or treatment Interval Note History & Physical reviewed/Exam performed by Physician: Yes Changes to H&P: No ASA Class (for procedural sedation): II
[2022-03-08 14:34] VITALS: BP 134/76; PULSE 66; RESP 12; TEMP 36.5; O2SAT 98
--- NOTE | 2022-03-08 14:34 | PM.OP.COLON ---
Operative Date/Time/Diagnoses Date of procedure: 03/08/22 Time of procedure: 14:34 Pre-op diagnosis: Family history of colon cancer Post-op diagnosis: same Procedure & Clinicians Study performed: Colonoscopy Same procedure as scheduled: Yes Indications: Family history of colon cancer Surgeon: Jorje Satnos Procedure Notes SCOAP/Timeout: Done Procedure in detail: After the risks and benefits were explained, written and verbal informed consent was obtained. The patient was brought into the procedure room and placed into the left lateral decubitus position. Please see nurse rn hospice notes for sedation details. Digital rectal examination was accomplished. The scope was introduced into the patient and advanced under direct visualization to the cecum as identified by the appendiceal orifice and ileocecal valve. The scope was slowly withdrawn to carefully examine the mucosa for any defects or lesions. Comprehensive imaging was accomplished throughout the rectum including the dentate line. The colon was decompressed, the scope was then removed from the patient who tolerated the procedure well. Pediatric colonoscope Bowel prep adequate Scope withdrawal time: 9 minutes Sedation minutes: 32 Specimen(s): none sent Complications: none Impression: The patient had some diverticulosis in the sigmoid colon. The patient had a fairly lengthy redundant colon. There was moderate tortuosity which rendered navigation is cecum quite difficult. We used the stiffener, abdominal pressure, and change to the supine position to achieve cecal intubation. No significant polyps mass lesions or inflammatory features identified throughout. Patient had grade 1 internal hemorrhoids with hypertrophied anal papillae Endoscopic diagnosis 1. Diverticulosis 2. Grade 1 hemorrhoids with hypertrophied anal papillae 3. Tortuous colon Post-procedure Plan for aftercare: In light of family history, consider repeat colonoscopy 5 years. Disposition: PACU
[2022-03-08 14:40] VITALS: BP 139/78; PULSE 64; RESP 14; O2SAT 99
[2022-03-08 14:44] VITALS: BP 142/84; PULSE 66; RESP 99; O2SAT 14
[2022-03-08 14:50] VITALS: BP 150/79; PULSE 60; RESP 16; TEMP 36.7
== END 2022-03-08 15:20 | disposition home or self-care (01) ==
PROVIDERS: Family Provider Internal Medicine; PCP Student in an Organized Health Care Education/Training Program; Referring Provider Internal Medicine Gastroenterology; Visit Provider Internal Medicine Gastroenterology
PROC: 0DJD8ZZ Inspection of Lower Intestinal Tract, Via Natural or Artificial Opening Endoscopic (ICD-10-PCS; CPT 45378; principal; 2022-03-08 13:30)
DX: Z12.11 Encounter for screening for malignant neoplasm of colon (principal); Z80.0 Family history of malignant neoplasm of digestive organs; K57.30 Diverticulosis of large intestine without perforation or abscess without bleeding; K64.0 First degree hemorrhoids; K64.4 Residual hemorrhoidal skin tags
CPT/HCPCS: G0105; J2704

== ENCOUNTER → 2022-07-13 10:23 | Outpatient (CLI) | payer MEDICARE, OTHER, SELFPAY ==
--- NOTE | 2022-07-13 | DI.RAD.S_ITS ---
PROCEDURE: XR LUMBAR SPINE 2-3V INDICATIONS: Lumbago with sciatica, right side TECHNIQUE: 3 views of the lumbar spine were acquired. COMPARISON: None. FINDINGS: Approximately 1 cm anterolisthesis of L4 on L5. No definite pars defect identified. Otherwise normal alignment. Vertebral body heights maintained. Moderate lower lumbar spine spondylitic changes with disc space narrowing, degenerative endplate change, and facet hypertrophy. IMPRESSION: Approximately 1 cm anterolisthesis of L4 on L5 without definite pars defect identified radiographically. Consider further evaluation with MRI. Dictated by: Toi Segura M.D. on 07/13/2022 at 12:53 Approved by: Toi Segura M.D. on 07/13/2022 at 12:55
== END ==
PROVIDERS: PCP Student in an Organized Health Care Education/Training Program; Referring Provider Student in an Organized Health Care Education/Training Program; Visit Provider Student in an Organized Health Care Education/Training Program
DX: M54.41 Lumbago with sciatica, right side (principal); M43.16 Spondylolisthesis, lumbar region
CPT/HCPCS: 72100

== ENCOUNTER → 2023-02-01 14:44 | Outpatient (CLI) | payer MEDICARE, OTHER, SELFPAY ==
--- NOTE | 2023-02-01 | DI.RAD.S_ITS ---
PROCEDURE: XR SCAPULA LT INDICATIONS: LEFT SCAPULA PAIN W/PAINFUL BREATHING TECHNIQUE: 2 views of the scapula were acquired. COMPARISON: None. FINDINGS: Bones: No fractures or dislocations. No suspicious bony lesions. Visualized ribs appear intact. Soft tissues: Overlying soft tissues appear normal. IMPRESSION: No fracture. No osseous lesion. If symptoms and/or clinical suspicion for pathology persists, further assessment with repeat radiographs (7-10 days) or advanced imaging (e.g. CT, MRI or bone scan) should be considered. Dictated by: Chelo Carey MD, PhD on 02/01/2023 at 16:11 Approved by: Chelo Carey MD, PhD on 02/01/2023 at 16:11
--- NOTE | 2023-02-01 | DI.RAD.S_ITS ---
PROCEDURE: XR CHEST 2V INDICATIONS: LEFT SCAPULA PAIN W/PAINFUL BREATHING TECHNIQUE: 2 views of the chest were acquired. COMPARISON: None. FINDINGS: Surgical changes and devices: None. Lungs and pleura: Lungs are clear. No pleural effusions or pneumothorax. Mediastinum: Mediastinal contours are normal. Heart size is normal. Bones and chest wall: No suspicious bony abnormalities. Soft tissues appear unremarkable. IMPRESSION: No acute cardiopulmonary disease process. Dictated by: Chelo Carey MD, PhD on 02/01/2023 at 16:11 Approved by: Chelo Carey MD, PhD on 02/01/2023 at 16:11
== END ==
PROVIDERS: PCP Student in an Organized Health Care Education/Training Program; Referring Provider Nurse Practitioner Family; Visit Provider Nurse Practitioner Family
DX: M89.8X1 Other specified disorders of bone, shoulder (principal); R07.1 Chest pain on breathing; M25.512 Pain in left shoulder
CPT/HCPCS: 71046; 73010

== ENCOUNTER → 2023-04-15 11:55 | Outpatient (CLI) | payer MEDICARE, OTHER, SELFPAY ==
[2023-04-15 12:45] LABS: Influenza A - CEPHEID Flu A NEGATIVE (NEGATIVE); Influenza B - CEPHEID Flu B NEGATIVE (NEGATIVE); Respiratory Syncytial Virus Negative (Negative)
[2023-04-15 12:55] LABS: COVID-19 CEPHEID 4-PLEX PCR Negative (Negative)
== END ==
PROVIDERS: PCP Student in an Organized Health Care Education/Training Program; Visit Provider Nurse Practitioner Family
DX: R05.1 Acute cough (principal); Z20.822 Contact with and (suspected) exposure to COVID-19
CPT/HCPCS: 0241U

== ENCOUNTER → 2024-03-19 15:03 | Outpatient (CLI) | payer MEDICARE, OTHER, SELFPAY ==
--- NOTE | 2024-03-19 15:04 | DI.RAD.S_ITS ---
PROCEDURE: XR DEXA AXIAL SKELETON INDICATIONS: OSTEOPOROSIS,MENOPAUSAL AND LAY DISORDER COMPARISON: [facility], CR, XR DEXA AXIAL SKELETON, 01/25/2022, 14:28. FINDINGS: Lumbar Spine: Bone mineral density is 0.958 g/cm2, T score -0.8, -1.3 Left Hip: Bone mineral density 0.807 g/cm2, T score -1.1, -0.7 Left Femoral Neck: Bone mineral density 0.629 g/cm2, T score -2.0, -2.5 Right Hip: Bone mineral density 0.795 g/cm2, T score -1.2, -1.2 Right Femoral Neck: Bone mineral density 0.602 g/cm2, T score -2.2, -2.6 Fracture Risk Calculation (when applicable): 10-year fracture risk of a major osteoporotic fracture 16% and of a hip fracture 4.8% (T score greater or equal to -1.0 to: NORMAL) (T score from -1.1 to -2.4: OSTEOPENIA) (T score less than or equal to -2.5: OSTEOPOROSIS) IMPRESSION: There is osteopenia of the left hip, left femoral neck, right hip and right femoral neck. The lumbar spine is within normal limits. Follow-up guidelines as follows: Osteoporosis: Consider a repeat DEXA and Vertebral Fracture Assessment (VFA) exam in 2 years or sooner if medically necessary, to reassess this patient's status. Osteopenia: Consider a repeat DEXA in 2-3 years to reassess this patient's status, or if there is a new clinical indication. Normal: Consider a repeat DEXA in 5 years or sooner, or if there is a new clinical indication. All treatment decisions require clinical judgment and consideration of individual patient factors, including patient preferences, comorbidities, previous drug use, risk factors not captured in the FRAX model (e.g., frailty, falls, vitamin D deficiency, increased bone turnover, interval significant decline in bone density ) and possible under- or over-estimation of fracture risk by FRAX. In addition, the NOF Guide recommends that FDA-approved medical therapies be considered in postmenopausal women and men age >= 50 years with a: * Hip or vertebral (clinical or morphometric) fracture * T-score of <=-2.5 at the spine or hip * Ten-year fracture probability by FRAX of >= 3% for hip fracture or >=20% for major osteoporotic fracture. People with diagnosed cases of osteoporosis or at high risk for fracture should have regular bone mineral density tests. For patients eligible for Medicare, routine testing is allowed once every 2 years. The testing frequency can be increased to one year for patients who have rapidly progressing disease, those who are receiving or discontinuing medical therapy to restore bone mass, or have additional risk factors. Dictated by: Montez Cohen M.D. on 03/20/2024 at 8:01 Approved by: Montez Cohen M.D. on 03/20/2024 at 8:06
== END ==
PROVIDERS: PCP Student in an Organized Health Care Education/Training Program; Referring Provider Student in an Organized Health Care Education/Training Program; Visit Provider Student in an Organized Health Care Education/Training Program
DX: M81.0 Age-related osteoporosis without current pathological fracture (principal); N95.9 Unspecified menopausal and perimenopausal disorder
CPT/HCPCS: 77080

== ENCOUNTER → 2024-05-29 09:27 | Outpatient (CLI) | payer MEDICARE, OTHER, SELFPAY ==
[2024-05-29 10:30] LABS: Add Manual Diff / Slide Review NO; Basophils Absolute Auto 0 /uL (0-100); Basophils Percent Auto 0.8 % (0-2); Eosinophils Absolute Auto 100 /uL (0-450); Eosinophils Percent Auto 2.7 % (2-4); Hematocrit 42.6 % (36-46); Hemoglobin 14.2 g/dL (12.0-16.0); Lymphocytes Absolute Auto 1400 /uL (1100-4500); Lymphocytes Percent Auto 25.3 % (25-40); Mean Corpuscular HGB Conc 33.3 % (30-36); Mean Corpuscular Hemoglobin 30.7 PG (26-34); Monocytes Absolute Auto 500 /uL (0-900); Monocytes Percent Auto 8.5 % (3-14); Neutrophils Absolute Auto 3400 /uL (1500-7000); Neutrophils Percent Auto 62.7 % (50-75); Platelet Count 237 X10^3/uL (150-400); Red Blood Cell Count 4.63 X10^6/uL (4.0-5.2); Red Cell Distribution Width 13.5 % (11.6-14.8); White Blood Cell Count 5.5 X10^3/uL (4.5-11.0)
[2024-05-29 10:47] LABS: HEMOLYSIS < 15 (0-50); Iron 87 ug/dL (37-170)
[2024-05-29 10:52] LABS: Alanine Aminotransferase 20 IU/L (<35); Albumin 3.9 g/dL (3.5-5.0); Albumin Globulin Ratio 1.7 (1.0-2.8); Alkaline Phosphatase 63 U/L (38-126); Aspartate Aminotransferase 29 IU/L (14-36); BUN Creatinine Ratio 25.6 (6-22); Bilirubin Total 0.6 mg/dL (0.2-1.3); Blood Urea Nitrogen 20 mg/dL (7-17); Calcium 9.4 mg/dL (8.4-10.2); Carbon Dioxide 29 mmol/L (22-32); Chloride 105 mmol/L (98-107); Cholesterol 184 mg/dL (140-199); Estimated Glomerular Filt Rate > 60 mL/min (>60); Globulin 2.3 g/dL (1.7-4.1); Glucose 100 mg/dL (80-110); HDL Cholesterol 67 mg/dL (40-60); HEMOLYSIS < 15 (0-50); LDL Cholesterol Calculated 97 mg/dL (<100); Magnesium 2.1 mg/dL (1.6-2.3); Potassium 4.8 mmol/L (3.4-5.1); Sodium 138 mmol/L (137-145); Total Protein 6.2 g/dL (6.3-8.2); Triglycerides 100 mg/dL (35-150)
[2024-05-29 11:02] LABS: Transferrin 243 mg/dL (206-381)
[2024-05-29 11:17] LABS: Percent Iron Saturation 28 % (15-50); Total Iron Binding Capacity 311 ug/dL (265-497)
[2024-05-29 11:20] LABS: TSH w/ Reflex to FT4 1.05 uIU/mL (0.47-4.68)
[2024-05-29 11:27] LABS: Ferritin 72 ng/mL (11-264)
[2024-05-29 11:39] LABS: Vitamin B12 > 1000 pg/mL (239-931)
== END ==
PROVIDERS: PCP Family Medicine; Referring Provider Family Medicine; Visit Provider Family Medicine
DX: Z13.6 Encounter for screening for cardiovascular disorders (principal); E78.5 Hyperlipidemia, unspecified; L65.9 Nonscarring hair loss, unspecified; M81.0 Age-related osteoporosis without current pathological fracture; E03.9 Hypothyroidism, unspecified
CPT/HCPCS: 36415; 80053; 80061; 82607; 82728; 83540; 83550; 83735; 84443; 85025

== ENCOUNTER → 2024-08-25 11:21 | Outpatient (CLI) | payer MEDICARE, OTHER, SELFPAY ==
--- NOTE | 2024-08-25 11:23 | DI.MRI.S_ITS ---
PROCEDURE: MR LUMBAR SPINE WO CON INDICATIONS: Low back pain TECHNIQUE: Noncontrast sagittal T1 spin echo and T2 fast echo, sagittal STIR, and T2 fast spin echo through the lumbar spine. In cases with scoliosis, additional coronal T2 fast spin echo may be performed. COMPARISON: [facility] [place], [place], XR LUMBAR SPINE 2 OR 3 VIEWS, 02/28/2024, 14:38. FINDINGS: Image quality: Excellent. Alignment and Curvature: 0.7 mm grade 1 L4-5 anterolisthesis. Minimal leftward curvature due to right-sided asymmetric disc height loss L3-4 and L4-5. Otherwise normal bone alignment. Bone Marrow: Mild type 1 Modic changes along the left posterior aspect of the L5-S1 endplates and right posterior aspect of the L3-4 endplates. No acute fractures or can not deformities. Spinal Cord: Conus medullaris terminates at the L1 level. Visualized cord demonstrates normal signal and size. Paraspinous Soft Tissues: No paravertebral masses. T12-L1: Normal appearance. L1-L2: Normal disc. Mild facet arthropathy. L2-L3: Mild disc height loss and desiccation. Mild circumferential disc osteophyte. Mild facet arthropathy. No significant central canal or foraminal stenosis. L3-L4: Moderate to severe disc height loss and desiccation. Mild circumferential disc bulge effacing anterior CSF and encroaching on lateral recesses. Mild to moderate facet arthropathy. Overall mild central canal stenosis. Mild right foraminal narrowing due to sub foraminal disc bulge and facet arthropathy. L4-L5: Severe facet arthropathy and moderate ligamentum flavum hypertrophy. Moderate disc height loss, desiccation, and disc uncovering. There is effacement of CSF from all sides and moderate to severe central canal stenosis. Mild left foraminal stenosis predominantly due to facet arthropathy. L5-S1: Mild disc height loss and desiccation. Mild circumferential disc bulge. Mild facet arthropathy and moderate ligamentum flavum hypertrophy, left worse than right. Mild central canal narrowing with facet encroaching from behind on the left lateral recess. Moderate left foraminal stenosis due to disc osteophyte. No significant right foraminal narrowing. IMPRESSION: Anterolisthesis and facet arthropathy at L4-5 results in moderate to severe central canal stenosis. Moderate left foraminal stenosis due to disc bulge at L5-S1 may be symptomatic. Dictated by: Marian Anders M.D. on 08/27/2024 at 11:06 Approved by: Marian Anders M.D. on 08/27/2024 at 11:17
== END ==
PROVIDERS: PCP Family Medicine; Referring Provider Family Medicine; Visit Provider Family Medicine
DX: M43.16 Spondylolisthesis, lumbar region; M47.816 Spondylosis without myelopathy or radiculopathy, lumbar region; M48.061 Spinal stenosis, lumbar region without neurogenic claudication; M48.07 Spinal stenosis, lumbosacral region; M51.379 Other intervertebral disc degeneration, lumbosacral region without mention of lumbar back pain or lower extremity pain; M54.9 Dorsalgia, unspecified; G89.29 Other chronic pain
CPT/HCPCS: 72148

== ENCOUNTER → 2024-10-22 08:36 | Outpatient (CLI) | payer MEDICARE, OTHER, SELFPAY ==
[2024-10-23 12:36] LABS: Fecal Immunochemical Test Positive (Negative)
== END ==
LOC: LAB 08:37
PROVIDERS: PCP Family Medicine; Referring Provider Family Medicine; Visit Provider Family Medicine
DX: Z12.11 Encounter for screening for malignant neoplasm of colon (principal)
CPT/HCPCS: 82274

== ENCOUNTER 2025-07-01 14:54 | Emergency (ER) | payer MEDICARE, OTHER, SELFPAY ==
[2025-07-01 14:58] VITALS: BP 172/89; PULSE 75; RESP 16; O2SAT 94
--- NOTE | 2025-07-01 15:11 | DI.US.S_ITS ---
PROCEDURE: US PERIPH VENOUS LOW EXTREM RT INDICATIONS: Suspicious for DVT TECHNIQUE: Real-time imaging, as well as color and pulse Doppler interrogation, were performed of the lower extremity deep veins from the inguinal ligament to the popliteal fossa, with documentation of the visualized calf veins. COMPARISON: None. FINDINGS: Filling defect in the distal superficial femoral vein, popliteal vein. Calf veins not well visualized. IMPRESSION: Deep venous thrombosis of the superficial femoral vein and popliteal vein. Dictated by: Franco Escobar M.D. on 07/01/2025 at 16:06 Approved by: Franco Escobar M.D. on 07/01/2025 at 16:07
--- NOTE | 2025-07-01 15:13 | ED_ITS ---
HPI - Extremity Problem General Chief complaint: Extremity Problem,Nontraumatic Stated complaint: rt leg pain/injury pc ref stat us Time Seen by Provider: 07/01/25 15:11 Source: patient Mode of arrival: Ambulatory History of Present Illness HPI Narrative: 79-year-old female patient with a history of hypothyroidism, dyslipidemia who complains of right calf swelling and tenderness for 8 days with no known injury. She has not been sedentary or had any travel as risk factors for DVT. Pain is in the right calf and is worse with walking but has persistent even when resting. She has some warmth and erythema. Related Data Home Medications ?Medication ?Instructions ?Recorded ?Confirmed cholecalciferol (vitamin D3) 50 100 mcg PO DAILY 05/1706/18/25 mcg (2,000 unit) capsule mecobalamin (vitamin B12) 2,500 mcg PO QID 03/28/25 mcg chewable tablet clotrimazole 1 % topical cream applic topical 06/18/25 06/18/25 Previous Rx's ?Medication ?Instructions ?Recorded lidocaine HCl 4 % topical gel 1 applic topical TID PRN pain #75 03/18/25 mL levothyroxine 88 mcg tablet 88 mcg PO DAILY #90 tabs 0 04/25/25 atorvastatin 20 mg tablet 10 mg (1/2 x 20 mg) PO BEDTI ME #45 05/09/25 tabs gabapentin 300 mg capsule 300 mg PO BEDTIME #30 caps 1 08/18/24 rivaroxaban 15 mg tablet (Xarelto) 15 mg PO BID 21 day s #42 tabs 07/01/25 Allergies Allergy/AdvReac Type Severity Reaction Status Date / Time Penicillins Allergy Mild Hives Verified 06/18/25 13:20 Sulfa (Sulfonamide Allergy Mild Hives Verified 06/18/25 13:20 Antibiotics) clindamycin Allergy Verified 06/18/25 13:20 Patient History Medical History (Updated 07/01/25 @ 17:55 by Ellis Carlin MD) Spondylolisthesis of lumbar region Lumbar stenosis with neurogenic claudication History of vaginal delivery Rosacea Osteoarthritis (~2011) Chronic back pain (~2022) Mumps Measles Chicken pox Cataracts, bilateral (~2010) Diverticular disease Spondyloarthropathy Osteoporosis (~2021) Hypothyroidism (~1988) Hyperlipidemia Osteopenia Surgical History (Updated 06/14/24 @ 20:27 by Mary Nelson) Anesthesia Status post anal fissurectomy (~1992) Family History (Updated 06/14/24 @ 20:31 by Mary Nleson) Father History of heart disease Mother Cancer Brother Head and neck cancer Sister Dementia Social History household members: spouse Smoking Status: Never smoker alcohol intake: current Smoking Status: Never smoker alcohol intake frequency: a few times a month Exam Narrative Exam Narrative: General: Alert and conversant. No distress. Appears well nourished and well hydrated Lungs: Clear to auscultation with good air movement. No wheezing, rales or rhonchi. No respiratory distress Cardiac: Regular rate and rhythm with no appreciable murmur or gallop Abdomen: Soft, nontender with no distention or masses. Normal bowel sounds. No rebound or guarding Musculoskeletal: Right calf tenderness to palpation and Homans sign. Right calf is 43 cm compared to 42 cm on the left. Otherwise Exam of the extremities, axial spine and ribcage reveals no deformity, bony tenderness or swelling. Range of motion intact Neuro: Alert and oriented. Cranial nerves, motor, sensory and cerebellar all grossly intact. No focal deficit Skin: Warm and normal color. No rashes Psychological: Normal affect and interaction. No evidence of delusion or psychosis. Normal mood. Initial Vital Signs Initial Vital Signs: Vital Signs Pulse Rate 75 07/01/25 14:58 Respiratory Rate 16 07/01/25 14:58 Blood Pressure 172/89 H 07/01/25 14:58 Pulse Oximetry 94 07/01/25 14:58 Oxygen Delivery Method Room Air 07/01/25 14:58 Course Orders Ordered: ED Orders 07/01/25 15:11 US periph venous low extrem rt Stat 07/01/25 16:47 CBC Auto Diff [Complete Blood Count AUTO DIFF] Stat CMP [Comprehensive Metabolic Panel] Stat D Dimer Stat Discontinued Medications Rivaroxaban (Rivaroxaban 10 Mg Tablet) 15 mg PO NOW ONE Stop: 07/01/25 17:58 Last Admin: 07/01/25 18:02 Dose: 15 mg Documented By: MANGO Vital Signs Vital signs: Vital Signs - 8 hr 07/01/25 18:20 Pulse Rate 63 Respiratory Rate 16 Blood Pressure 185/89 H Pulse Oximetry 95 Oxygen Delivery Method Room Air MDM - Extremity (Nontraumatic) Lab Data 07/01/25 16:47 07/01/25 16:47 Labs: Lab Results 07/01/25 Range/Units 16:47 WBC 6.3 (4.5-11.0) X10^3/uL RBC 4.43 (4.0-5.2) X10^6/uL Hgb 13.5 (12.0-16.0) g/dL Hct 39.5 (36-46) % MCV 89.2 (80-100) fL MCH 30.5 (26-34) PG MCHC 34.2 (30-36) % RDW 12.6 (11.6-14.8) % Plt Count 228 (150-400) X10^3/uL Neut % (Auto) 64.6 (50-75) % Lymph % (Auto) 23.0 L (25-40) % Ralls % (Auto) 8.3 (3-14) % Eos % (Auto) 2.9 (2-4) % Baso % (Auto) 1.2 (0-2) % Neut # (Auto) 4100 (4341-1261) /uL Lymph # (Auto) 1500 (3472-8295) /uL Ralls # (Auto) 500 (0-900) /uL Eos # (Auto) 200 (0-450) /uL Baso # (Auto) 100 (0-100) /uL D-Dimer 27404 H (<500) ng/ml Sodium 138 (137-145) mmol/L Potassium 4.2 (3.4-5.1) mmol/L Chloride 104 (98-107) mmol/L Carbon Dioxide 29 (22-32) mmol/L BUN 24 H (7-17) mg/dL Creatinine 0.77 (0.52-1.04) mg/dL Estimated GFR > 60 (>60) mL/min BUN/Creatinine Ratio 31.2 H (6-22) Glucose 95 (70-99) mg/dL Calcium 9.7 (8.4-10.2) mg/dL Total Bilirubin 0.3 (0.2-1.3) mg/dL AST 26 (14-36) IU/L ALT 18 (<35) IU/L Alkaline Phosphatase 76 (38-126) U/L Total Protein 6.8 (6.3-8.2) g/dL Albumin 4.1 (3.5-5.0) g/dL Globulin 2.7 (1.7-4.1) g/dL Albumin/Globulin Ratio 1.5 (1.0-2.8) Imaging Data US - DVT: Radiologist's Impression: Impression: Deep venous thrombosis of the superficial femoral vein and popliteal vein. [facility] Narrative Medical decision making narrative: Patient has positive right lower extremity duplex for popliteal and superficial femoral thrombus. She is a good candidate for outpatient treatment and will start her on Xarelto, 15 b.i.d. for 21 days. Follow up with primary care. Return to the ER if worse. Otherwise no evidence of infection based on exam or lab work. Discharge Plan Departure Patient Disposition: Home Clinical Impression: DVT of lower limb, acute Instructions: Deep Vein Thrombosis Activity Restrictions/Additional Instructions: Plan: Warm packs, elevation and prescription for rivaroxaban. Twice a day for 21 days and then once a day Follow up with your doctor in 2-3 weeks for reassessment and to discuss continue medication. Return to the ER if worse Prescriptions: New Xarelto 15 mg tablet 15 mg PO BID 21 Days Qty: 42 0RF Rx Instructions: must administer with evening meal No Action lidocaine HCl 4 % gel 1 applic topical TID PRN (Reason: pain) Qty: 75 0RF cholecalciferol (vitamin D3) 50 mcg (2,000 unit) capsule 100 mcg PO DAILY mecobalamin (vitamin B12) 2,500 mcg tablet,chewable PO QID levothyroxine 88 mcg tablet 88 mcg PO DAILY Qty: 90 2RF atorvastatin 20 mg tablet 10 mg PO BEDTIME Qty: 45 2RF clotrimazole 1 % cream topical gabapentin 300 mg capsule 300 mg PO BEDTIME MDD 600mg tid Qty: 30 3RF Referrals: Keisha Rascon MD [Primary Care Provider, Family Practice] Stand Alone Forms: Patient Portal/API
[2025-07-01 16:59] LABS: Add Manual Diff / Slide Review NO; Hematocrit 39.5 % (36-46); Hemoglobin 13.5 g/dL (12.0-16.0); Lymphocytes Absolute Auto 1500 /uL (1100-4500); Mean Corpuscular HGB Conc 34.2 % (30-36); Mean Corpuscular Hemoglobin 30.5 PG (26-34); Mean Corpuscular Volume 89.2 fL (80-100); Platelet Count 228 X10^3/uL (150-400)
[2025-07-01 17:13] LABS: Alanine Aminotransferase 18 IU/L (<35); Albumin 4.1 g/dL (3.5-5.0); Albumin Globulin Ratio 1.5 (1.0-2.8); Alkaline Phosphatase 76 U/L (38-126); Blood Urea Nitrogen 24 mg/dL (7-17); Calcium 9.7 mg/dL (8.4-10.2); Carbon Dioxide 29 mmol/L (22-32); Chloride 104 mmol/L (98-107); Estimated Glomerular Filt Rate > 60 mL/min (>60); Globulin 2.7 g/dL (1.7-4.1); Glucose 95 mg/dL (70-99); HEMOLYSIS < 15 (0-50); Potassium 4.2 mmol/L (3.4-5.1); Sodium 138 mmol/L (137-145); Total Protein 6.8 g/dL (6.3-8.2)
[2025-07-01] MEDS: RIVAROXABAN 10 MG TABLET 15 MG PO (18:02)
[2025-07-01 18:20] VITALS: BP 185/89; PULSE 63; RESP 16; O2SAT 95
== END 2025-07-01 18:21 | disposition home or self-care (01) ==
PROVIDERS: Emergency Provider Emergency Medicine; PCP Family Medicine
DX: I82.431 Acute embolism and thrombosis of right popliteal vein (principal); I82.411 Acute embolism and thrombosis of right femoral vein
CPT/HCPCS: 80053; 85025; 85379; 93971; 99283; 99284

== ENCOUNTER → 2025-07-23 11:32 | Outpatient (CLI) | payer MEDICARE, OTHER, SELFPAY ==
[2025-07-23 11:53] LABS: Add Manual Diff / Slide Review NO; Hematocrit 42.1 % (36-46); Hemoglobin 14.2 g/dL (12.0-16.0); Lymphocytes Absolute Auto 1500 /uL (1100-4500); Mean Corpuscular HGB Conc 33.7 % (30-36); Mean Corpuscular Hemoglobin 30.0 PG (26-34); Mean Corpuscular Volume 89.1 fL (80-100); Platelet Count 262 X10^3/uL (150-400)
[2025-07-23 13:07] LABS: Alanine Aminotransferase 24 IU/L (<35); Albumin 4.0 g/dL (3.5-5.0); Albumin Globulin Ratio 1.7 (1.0-2.8); Alkaline Phosphatase 65 U/L (38-126); Blood Urea Nitrogen 20 mg/dL (7-17); Calcium 9.6 mg/dL (8.4-10.2); Carbon Dioxide 31 mmol/L (22-32); Chloride 104 mmol/L (98-107); Cholesterol 189 mg/dL (140-199); Estimated Glomerular Filt Rate > 60 mL/min (>60); Globulin 2.4 g/dL (1.7-4.1); Glucose 128 mg/dL (70-99); HDL Cholesterol 64 mg/dL (40-60); HEMOLYSIS < 15 (0-50); Potassium 4.3 mmol/L (3.4-5.1); Sodium 140 mmol/L (137-145); Total Protein 6.4 g/dL (6.3-8.2); Triglycerides 206 mg/dL (35-150)
[2025-07-23 13:37] LABS: TSH w/ Reflex to FT4 1.10 uIU/mL (0.47-4.68)
[2025-07-23 13:56] LABS: Vitamin B12 > 1000 pg/mL (239-931)
== END ==
PROVIDERS: PCP Family Medicine; Referring Provider Family Medicine; Visit Provider Family Medicine
DX: R19.5 Other fecal abnormalities (principal); E78.5 Hyperlipidemia, unspecified; E03.9 Hypothyroidism, unspecified
CPT/HCPCS: 36415; 80053; 80061; 82607; 84443; 85025

== ENCOUNTER → 2025-07-29 13:20 | Outpatient (CLI) | payer MEDICARE, OTHER, SELFPAY ==
--- NOTE | 2025-07-29 13:21 | DI.CT.S_ITS ---
PROCEDURE: CT ABDOMEN PELVIS W CON INDICATIONS: +Fit, unprovoked DVT TECHNIQUE: After the administration of intravenous contrast, axial sections acquired from the lung bases to the pubic symphysis. Coronal and sagittal reformats were performed. For radiation dose reduction, the following was used: automated exposure control, adjustment of mA and/or kV according to patient size. COMPARISON: None. FINDINGS: Image quality: Diagnostic. Lower Chest: 7 mm nodule in the posterior infrahilar left upper lobe (series 5, image 6). ABDOMEN: Liver: No solid mass. Simple cysts in segment 8. Gallbladder: Contracted gallbladder with multiple 2-3 mm stones within the gallbladder lumen. No pericholecystic edema. Biliary ducts: No biliary dilation. Pancreas: No ductal dilation. Spleen: Size is within normal limits. Adrenal Glands: No adrenal nodules. Kidneys and Ureters: No hydronephrosis. No solid mass. No complex renal cystic lesion which requires follow up. Stomach and Bowel: Normal colonic caliber, without significant wall thickening. Diverticulosis without diverticulitis. Normal appendix. Peritoneum: No abnormal intraperitoneal fluid. No free air. Ventral Wall: No significant ventral hernia. Abdominal Nodes: No retroperitoneal or mesenteric adenopathy by size criteria. Vessels: Aorta and inferior vena cava are normal in size. PELVIS: Pelvic Organs: Unremarkable. Bladder: No bladder wall thickening, accounting for underdistention. Pelvic Nodes: No enlarged lymph nodes. Miscellaneous: No inguinal hernias are seen. Bones: No aggressive osseous abnormality. Degenerative disc disease at L3-4. Degenerative anterolisthesis of L4 on L5. IMPRESSION: 1. No visualized colonic mass, however, it CT has low sensitivity for colon malignancy. Recommend correlation with colonoscopy given reported positive fit test. 2. Left upper lobe 7 mm infrahilar nodule. Recommend follow-up chest CT in 6-12 months. 3. Cholelithiasis without acute cholecystitis. 4. Diverticulosis without diverticulitis. Dictated by: Reza Chavarria M.D. on 08/06/2025 at 15:13 Approved by: Reza Chavarria M.D. on 08/06/2025 at 15:21
== END ==
LOC: CT 13:21
PROVIDERS: PCP Family Medicine; Referring Provider Family Medicine; Visit Provider Family Medicine
DX: I82.491 Acute embolism and thrombosis of other specified deep vein of right lower extremity (principal); R19.5 Other fecal abnormalities; K76.89 Other specified diseases of liver; K80.20 Calculus of gallbladder without cholecystitis without obstruction; K57.90 Diverticulosis of intestine, part unspecified, without perforation or abscess without bleeding; M51.369 Other intervertebral disc degeneration, lumbar region without mention of lumbar back pain or lower extremity pain; M43.16 Spondylolisthesis, lumbar region
CPT/HCPCS: 71260; 74177; Q9967